=== PATIENT | female | born 1955 ===

== ENCOUNTER 2017-07-29 06:50 | Emergency (ER) | payer MEDICARE ==
[2017-07-29] MEDS ORDERED: Morphine 2 MG/ML Syringe IVPUSH ONE (07:28)
[2017-07-29] MEDS ORDERED: Sodium Chloride 0.9% 2.5 ML Syringe FLUSH PRN (07:28)
[2017-07-29] MEDS ORDERED: Sodium Chloride 0.9% 1,000 ML IV ONE ×2 (07:28→08:23)
[2017-07-29] MEDS ORDERED: Sodium Chloride 0.9% 10 ML Syringe FLUSH PRN (07:28)
[2017-07-29] MEDS ORDERED: Ondansetron 4 MG/2 ML SDV IVPUSH ONE (07:28)
--- NOTE | 2017-07-29 07:32 | EDM.PDOC ---
ED HPI GENERAL MEDICAL PROBLEM - General Chief Complaint: Gastrointestinal Problem Stated Complaint: VOMITING AND DIARRHEA Time Seen by Provider: 07/29/17 07:27 - History of Present Illness INITIAL COMMENTS - FREE TEXT/NARRATIVE: HISTORY AND PHYSICAL: History of present illness: The patient is a 61-year-old female with a history of rheumatoid arthritis for which she takes weekly biologic, Enbrel, as well as prednisone and Plaquenil and methotrexate, history of hypertension asthma and diverticulitis who presents to the ED with onset of nausea vomiting mid abdominal pain and diarrhea that started approximately 2:30 AM. The patient tells me she had a normal day yesterday and did not eat anything unusual and has not had any recent travel other than coming here from [place]. Patient did not have any fevers chills coughing runny nose sore throat or GI symptoms yesterday. She has no GI surgical history. The patient says that she was asleep and woke up with the nausea that had vomiting and then had the abdominal pain which is diffuse in the midabdomen does not localize right or left and then mushy and watery stools. The vomit has been mostly yellow and it is not black or bloody and she is very thirsty. She cannot tolerate anything orally. She took 2 doses of Zofran at home which did not help at 5 AM. She has had multiple small watery bowel movements which are light brown in color and not black or bloody. She is not having any chest pain or shortness of breath and no fevers or chills currently. Review of systems: As per history of present illness and below otherwise all systems reviewed and negative. Past medical history: As per history of present illness and as reviewed below otherwise noncontributory. Surgical history: As per history of present illness and as reviewed below otherwise noncontributory. Social history: No reported history of drug or alcohol abuse. Family history: As per history of present illness and as reviewed below otherwise noncontributory. Physical exam: General: Well-developed well-nourished female who is nontoxic and vital signs are noted by me. HEENT: Atraumatic, normocephalic, pupils reactive, negative for conjunctival pallor or scleral icterus, mucous membranes tacky throat clear, neck supple, nontender, trachea midline. No cervical adenopathy Lungs: Clear to auscultation, breath sounds equal bilaterally, chest nontender. Heart: S1S2, regular, negative for clicks, rubs, or JVD. Abdomen: Soft, nondistended, there is some mild diffuse mid abdominal tenderness on palpation without localization right or left and there is no rebound or guarding. Bowel sounds are hypoactive Negative for masses or hepatosplenomegaly. Pelvis: Stable nontender. Genitourinary: Deferred. Rectal: Deferred. Extremities: Atraumatic, negative for cords or calf pain. Neurovascular unremarkable. The patient has diffuse arthritic changes of her hands and feet consistent with her rheumatoid arthritis Neuro: Awake, alert, oriented. Cranial nerves II through XII unremarkable. Cerebellum unremarkable. Motor and sensory unremarkable throughout. Exam nonfocal. Please note that the patient made a small bowel movement in the ED prior to my arrival which I was able to see. Is light brown in color watery in consistency and there is no black or blood visualized. Diagnostics: CBC CMP amylase lipase lactic acid UA CT scan of the abdomen and pelvis Abdominal ultrasound Therapeutics: IV, IV fluids, morphine, Zofran 1015: The CT scan results were discussed with Dr. Arenas our surgeon on-call and would like an abdominal ultrasound to better evaluate the common bile duct. She says that if this is within normal limits the patient in follow-up in her clinic. The patient currently feels much improved and has no abdominal pain no vomiting and is actually asking for fluids to drink. We will do the ultrasound first get those results prior to by mouth challenge. She is comfortable with this care plan. 1153: Dr. Arenas is aware of ultrasound and agrees with outpatient follow-up. Patient has a scheduled appointment to follow-up with Dr. Arenas in the clinic on Wednesday at 1 PM. The patient tells us that she lives in [place] but she is going to be here for a significant time and can do this follow-up appointment. She'll be cautioned on reasons to return and be given Zofran if she needs it. I will also cautioned her on dietary restrictions the next few days. Impression: Abdominal pain/vomiting and diarrhea, improved stable; dilated common bile duct etiology unclear stable Definitive disposition and diagnosis as appropriate pending reevaluation and review of above. abdomen Pain Score (Numeric/FACES): 2 - Related Data Allergies Allergy/AdvReac Type Severity Reaction Status Date / Time Sulfa (Sulfonamide Allergy Anaphylactic Verified 07/29/17 07:11 Antibiotics) Shock Home Meds: Home Meds Albuterol [Ventolin HFA] 1 puff .XX 07/29/17 [History] Ascorbic Acid [Vitamin C] 2,000 mg PO DAILY 07/29/17 [History] Calcium Carbonate [Calcium] 2 tab PO DAILY 07/29/17 [History] Etanercept [Enbrel] 5 mg SQ WEEKLY 07/29/17 [History] Folic Acid 1 tab PO DAILY 07/29/17 [History] Hydroxychloroquine [Plaquenil] 200 mg PO BID 07/29/17 [History] Methotrexate 5 tab PO WEEKLY 07/29/17 [History] Montelukast [Singulair] 10 mg PO DAILY 07/29/17 [History] Multivitamin with Minerals [Multiple Vitamin] 1 tab PO DAILY 07/29/17 [History] Theophylline [Theophylline Anhydrous] 300 mg PO BID 07/29/17 [History] amLODIPine [Norvasc] 5 mg PO DAILY 07/29/17 [History] predniSONE [Prednisone] 5 mg PO BID 07/29/17 [History] Past Medical History Cardiovascular History: Reports: Hypertension Respiratory History: Reports: Asthma [employer] History: Reports: Musculoskeletal History: Reports: Arthritis - Past Surgical History Cardiovascular Surgical History: Reports: None Musculoskeletal Surgical History: Reports: Knee Replacement Other Musculoskeletal Surgeries/Procedures:: right femur sx; both feet sx Social & Family History - Family History Family Medical History: Noncontributory - Tobacco Use Smoking Status *Q: Never Smoker - Recreational Drug Use Recreational Drug Use: No ED ROS GENERAL - Review of Systems Review Of Systems: ROS reveals no pertinent complaints other than HPI. ED EXAM, GENERAL - Physical Exam Exam: See Below (See dictation) Course - Vital Signs Last Recorded V/S: Last Vital Signs Temp 36.6 C 07/29/17 06:50 Pulse 90 07/29/17 06:50 Resp 18 07/29/17 06:50 BP 145/70 H 07/29/17 06:50 Pulse Ox 97 07/29/17 06:50 - Orders/Labs/Meds Orders: Active Orders 24 hr Category Date Time Status LACTIC ACID,WHOLE BLOOD [BG] Routine Lab 07/29/17 11:46 Ordered Sodium Chloride 0.9% [Normal Saline] 1,000 ml Med 07/29/17 10:30 Active IV ASDIRECTED Sodium Chloride 0.9% [Saline Flush] Med 07/29/17 07:28 Active 10 ml FLUSH ASDIRECTED PRN Sodium Chloride 0.9% [Saline Flush] Med 07/29/17 07:28 Active 2.5 ml FLUSH ASDIRECTED PRN Saline Lock Insert [OM.PC] Stat Oth 07/29/17 07:28 Ordered Medication Orders Sodium Chloride (Normal Saline) 1,000 mls @ 150 mls/hr IV ASDIRECTED MAYA Last Admin: 07/29/17 10:34 Dose: 150 mls/hr Sodium Chloride (Saline Flush) 10 ml FLUSH ASDIRECTED PRN PRN Reason: Keep Vein Open Last Admin: 07/29/17 07:35 Dose: 10 ml Sodium Chloride (Saline Flush) 2.5 ml FLUSH ASDIRECTED PRN PRN Reason: Keep Vein Open Last Admin: 07/29/17 07:35 Dose: 2.5 ml Labs: Laboratory Tests 07/29/17 07/29/17 07/29/17 Range/Units 07:00 07:38 07:38 WBC 8.91 (4.0-11.0) K/uL RBC 4.92 (4.30-5.90) M/uL Hgb 15.0 (12.0-16.0) g/dL Hct 44.1 (36.0-46.0) % MCV 89.6 (80.0-98.0) fL MCH 30.5 (27.0-32.0) pg MCHC 34.0 (31.0-37.0) g/dL RDW Std Deviation 49.1 (28.0-62.0) fl RDW Coeff of Pillo 15 (11.0-15.0) % Plt Count 142 L (150-400) K/uL MPV 10.00 (7.40-12.00) fL Neut % (Auto) 91.8 H (48.0-80.0) % Lymph % (Auto) 3.8 L (16.0-40.0) % Wetzel % (Auto) 2.6 (0.0-15.0) % Eos % (Auto) 1.8 (0.0-7.0) % Baso % (Auto) 0.0 (0.0-1.5) % Neut # (Auto) 8.2 H (1.4-5.7) K/uL Lymph # (Auto) 0.3 L (0.6-2.4) K/uL Wetzel # (Auto) 0.2 (0.0-0.8) K/uL Eos # (Auto) 0.2 (0.0-0.7) K/uL Baso # (Auto) 0.0 (0.0-0.1) K/uL Nucleated RBC % 0.0 /100WBC Nucleated RBCs # 0 K/uL Lactate 2.3 H (0.20-2.00) mmol/L Sodium (136-145) mmol/L Potassium (3.5-5.1) mmol/L Chloride (98-107) mmol/L Carbon Dioxide (21.0-32.0) mmol/L BUN (7.0-18.0) mg/dL Creatinine (0.6-1.0) mg/dL Est Cr Clr Drug Dosing Estimated GFR (MDRD) ml/min Glucose (74-106) mg/dL Calcium (8.5-10.1) mg/dL Total Bilirubin (0.2-1.0) mg/dL AST (15-37) IU/L ALT (14-63) IU/L Alkaline Phosphatase (46-116) U/L Total Protein (6.4-8.2) g/dL Albumin (3.4-5.0) g/dL Globulin (2.0-3.5) g/dL Albumin/Globulin Ratio (1.3-2.8) Amylase (25-115) U/L Lipase (73-393) U/L Urine Color YELLOW Urine Appearance CLEAR Urine pH 5.5 (5.0-8.0) Ur Specific [place] >= 1.030 (1.001-1.035) Urine Protein TRACE (NEGATIVE) mg/dL Urine Glucose (UA) NEGATIVE (NEGATIVE) mg/dL Urine Ketones NEGATIVE (NEGATIVE) mg/dL Urine Occult Blood NEGATIVE (NEGATIVE) Urine Nitrite NEGATIVE (NEGATIVE) Urine Bilirubin NEGATIVE (NEGATIVE) Urine Urobilinogen 0.2 (<2.0) EU/dL Ur Leukocyte Esterase NEGATIVE (NEGATIVE) Urine RBC 0-2 (0-2/HPF) Urine WBC 0-2 (0-5/HPF) Ur Epithelial Cells OCCASIONAL (NONE-FEW) Urine Bacteria FEW (NEGATIVE) Urine Mucus MODERATE (NONE-MOD) Urinalysis Comment 07/29/17 Range/Units 07:38 WBC (4.0-11.0) K/uL RBC (4.30-5.90) M/uL Hgb (12.0-16.0) g/dL Hct (36.0-46.0) % MCV (80.0-98.0) fL MCH (27.0-32.0) pg MCHC (31.0-37.0) g/dL RDW Std Deviation (28.0-62.0) fl RDW Coeff of Pillo (11.0-15.0) % Plt Count (150-400) K/uL MPV (7.40-12.00) fL Neut % (Auto) (48.0-80.0) % Lymph % (Auto) (16.0-40.0) % Wetzel % (Auto) (0.0-15.0) % Eos % (Auto) (0.0-7.0) % Baso % (Auto) (0.0-1.5) % Neut # (Auto) (1.4-5.7) K/uL Lymph # (Auto) (0.6-2.4) K/uL Wetzel # (Auto) (0.0-0.8) K/uL Eos # (Auto) (0.0-0.7) K/uL Baso # (Auto) (0.0-0.1) K/uL Nucleated RBC % /100WBC Nucleated RBCs # K/uL Lactate (0.20-2.00) mmol/L Sodium 145 (136-145) mmol/L Potassium 3.4 L (3.5-5.1) mmol/L Chloride 108 H (98-107) mmol/L Carbon Dioxide 24.4 (21.0-32.0) mmol/L BUN 27 H (7.0-18.0) mg/dL Creatinine 1.0 (0.6-1.0) mg/dL Est Cr Clr Drug Dosing TNP Estimated GFR (MDRD) 56.0 ml/min Glucose 122 H (74-106) mg/dL Calcium 9.0 (8.5-10.1) mg/dL Total Bilirubin 0.6 (0.2-1.0) mg/dL AST 39 H (15-37) IU/L ALT 23 (14-63) IU/L Alkaline Phosphatase 59 (46-116) U/L Total Protein 7.5 (6.4-8.2) g/dL Albumin 3.8 (3.4-5.0) g/dL Globulin 3.7 H (2.0-3.5) g/dL Albumin/Globulin Ratio 1.0 L (1.3-2.8) Amylase 52 (25-115) U/L Lipase 275 (73-393) U/L Urine Color Urine Appearance Urine pH (5.0-8.0) Ur Specific [place] (1.001-1.035) Urine Protein (NEGATIVE) mg/dL Urine Glucose (UA) (NEGATIVE) mg/dL Urine Ketones (NEGATIVE) mg/dL Urine Occult Blood (NEGATIVE) Urine Nitrite (NEGATIVE) Urine Bilirubin (NEGATIVE) Urine Urobilinogen (<2.0) EU/dL Ur Leukocyte Esterase (NEGATIVE) Urine RBC (0-2/HPF) Urine WBC (0-5/HPF) Ur Epithelial Cells (NONE-FEW) Urine Bacteria (NEGATIVE) Urine Mucus (NONE-MOD) Urinalysis Comment Meds: Medications Generic Name Dose Route Start Last Admin Trade Name Freq PRN Reason Stop Dose Admin Sodium Chloride 1,000 mls @ 150 mls/hr 07/29/17 10:30 07/29/17 10:34 Normal Saline IV 150 mls/hr ASDIRECTED MAYA Administration Sodium Chloride 10 ml 07/29/17 07:28 07/29/17 07:35 Saline Flush FLUSH 10 ml ASDIRECTED PRN Administration Keep Vein Open Sodium Chloride 2.5 ml 07/29/17 07:28 07/29/17 07:35 Saline Flush FLUSH 2.5 ml ASDIRECTED PRN Administration Keep Vein Open Discontinued Medications Generic Name Dose Route Start Last Admin Trade Name Freq PRN Reason Stop Dose Admin Sodium Chloride 1,000 mls @ 999 mls/hr 07/29/17 07:28 07/29/17 07:34 Normal Saline IV 07/29/17 08:28 999 mls/hr STAT ONE Administration Sodium Chloride 1,000 mls @ 999 mls/hr 07/29/17 08:23 07/29/17 08:31 Normal Saline IV 07/29/17 09:23 999 mls/hr STAT ONE Administration Iopamidol 85 ml 07/29/17 09:49 07/29/17 09:50 Isovue Multipack-370 (76%) IVPUSH 07/29/17 09:50 85 ml ONETIME ONE Administration Morphine Sulfate 4 mg 07/29/17 07:28 07/29/17 07:34 Morphine IVPUSH 07/29/17 07:29 4 mg ONETIME ONE Administration Ondansetron HCl 4 mg 07/29/17 07:28 07/29/17 07:34 Zofran IVPUSH 07/29/17 07:29 4 mg ONETIME ONE Administration Departure - Departure Time of Disposition: 11:54 Disposition: Home, Self-Care 01 Condition: Good Clinical Impression: Vomiting, Diarrhea, Abdominal pain, Common bile duct dilatation - Discharge Information Referrals: PCP,None [Primary Care Provider] - Forms: ED Department Discharge Additional Instructions: The following information is given to patients seen in the emergency department who are being discharged to home. This information is to outline your options for follow-up care. We provide all patients seen in our emergency department with a follow-up referral. The need for follow-up, as well as the timing and circumstances, are variable depending upon the specifics of your emergency department visit. If you don't have a primary care physician on staff, we will provide you with a referral. We always advise you to contact your personal physician following an emergency department visit to inform them of the circumstance of the visit and for follow-up with them and/or the need for any referrals to a consulting specialist. The emergency department will also refer you to a specialist when appropriate. This referral assures that you have the opportunity for followup care with a specialist. All of these measure are taken in an effort to provide you with optimal care, which includes your followup. Under all circumstances we always encourage you to contact your private physician who remains a resource for coordinating your care. When calling for followup care, please make the office aware that this follow-up is from your recent emergency room visit. If for any reason you are refused follow-up, please contact the [facility] emergency department at and ask to speak to the emergency department charge nurse. [facility]-General [facility] Professional Building [address] [place] [address] [address] [place] [address] You have been scheduled to see DR ARENAS on WEDNESDAY AUGUST 02, 2017 AT 1:00PM. Bring insurance card and ID to the appointment. Push hydration and bland diet and use Zofran ODT as needed for nausea or vomiting. You may use [id number] medications for diarrhea as you choose. Please keep your appointment as scheduled and return to ER as needed and as discussed - My Orders Last 24 Hours: My Active Orders 07/29/17 07:28 Sodium Chloride 0.9% [Saline Flush] 10 ml FLUSH ASDIRECTED PRN Sodium Chloride 0.9% [Saline Flush] 2.5 ml FLUSH ASDIRECTED PRN Saline Lock Insert [OM.PC] Stat 07/29/17 10:30 Sodium Chloride 0.9% [Normal Saline] 1,000 ml IV ASDIRECTED 07/29/17 11:46 LACTIC ACID,WHOLE BLOOD [BG] Routine - Assessment/Plan Last 24 Hours: My Active Orders 07/29/17 07:28 Sodium Chloride 0.9% [Saline Flush] 10 ml FLUSH ASDIRECTED PRN Sodium Chloride 0.9% [Saline Flush] 2.5 ml FLUSH ASDIRECTED PRN Saline Lock Insert [OM.PC] Stat 07/29/17 10:30 Sodium Chloride 0.9% [Normal Saline] 1,000 ml IV ASDIRECTED 07/29/17 11:46 LACTIC ACID,WHOLE BLOOD [BG] Routine
[2017-07-29 08:17] LABS: CHLORIDE,CL 108 mmol/L (98-107); SODIUM,NA 145 mmol/L (136-145)
[2017-07-29] MEDS ORDERED: Iopamidol 755 MG/ML 500 ML Multipack Bottle IVPUSH ONE (09:49)
--- NOTE | 2017-07-29 10:02 | CT ---
CT of the abdomen and pelvis with contrast. HISTORY: Pain TECHNIQUE: Axial CT images were obtained of the abdomen and pelvis following administration of 85 mL of Isovue-370 in the left antecubital fossa without complication. Coronal and sagittal reconstruction s obtained. FINDINGS: The lung bases are clear, no pleural effusion. Small hiatal hernia. The liver, spleen, and adrenal glands appear normal. The gallbladder is normal. There is a mild promi nence of the anterior and extrahepatic biliary tree with the common bile duct measuring up to 9 mm. N o definitive filling defect identified. The pancreas is normal. No bulky retroperitoneal lymphadenopa thy or abdominal ascites. The kidneys enhance and function symmetrically without evidence of obstructive uropathy. Tiny renal c ortical cysts are noted. The large and small bowel are normal in caliber without evidence of obstruction. No pericolonic infla mmation or stranding. A few diverticula are noted. The appendix is normal. No pelvic lymphadenopathy or free pelvic fluid. The urinary bladder is normal. Hardware noted within the left femur. No suspicious osseous abnormalities identified. IMPRESSION: 1. Mild prominence of the biliary tree with the common bile duct measuring up to 9 mm. 2. No acute findings noted within the abdomen or pelvis.
[2017-07-29] MEDS ORDERED: Sodium Chloride 0.9% 1,000 ML IV SCH (10:30)
--- NOTE | 2017-07-29 11:47 | US ---
EXAMINATION: Right upper quadrant ultrasound HISTORY: Pain COMPARISON: CT from the same day TECHNIQUE: Grayscale and color Doppler imaging obtained. FINDINGS: The visualized pancreas appears normal. The liver is normal in contour and echotexture with out a focal hepatic mass. The gallbladder wall thickness is normal. No pericholecystic fluid or shado wing gallstones. Common bile duct measures up to 1 cm. The right kidney measures 11.2 cm [id number] without evidence of hydronephrosis. IMPRESSION: 1. Common bile duct is dilated up to 1 cm, otherwise unremarkable right upper quadrant ultrasound.
[2017-07-29 11:55] VITALS: BP 134/86
== END 2017-07-29 12:10 | disposition home or self-care (01) ==
LOC: MW.ED 06:50
DX: K83.8 Other specified diseases of biliary tract (principal); R11.2 Nausea with vomiting, unspecified; I10 Essential (primary) hypertension; J45.909 Unspecified asthma, uncomplicated; Z88.2 Allergy status to sulfonamides; Z79.899 Other long term (current) drug therapy
CPT/HCPCS: 36415; 74177; 76705; 80053; 81001; 82150; 83605; 83690; 85025; 96361; 96374; 96375; 99284; J2270; J2405; J7040; Q9967